=== PATIENT | male | born 1965 | race Caucasian/White ===

== ENCOUNTER 2023-12-26 19:22 | Emergency (ER) | payer OTHER | END 2023-12-26 20:54 | disposition home or self-care (01) | LOC: JP.ED 19:22 | DX: S29.012A Strain of muscle and tendon of back wall of thorax, initial encounter (principal); Z86.16 Personal history of COVID-19; Z79.899 Other long term (current) drug therapy; X58.XXXA Exposure to other specified factors, initial encounter | CPT/HCPCS: 71046; 99283 ==